=== PATIENT | female | born 1955 | race Caucasian/White ===

== ENCOUNTER → 2023-05-11 10:39 | Outpatient (CLI) | payer MEDICARE, SELFPAY ==
--- NOTE | 2023-05-11 | DI.MRI.S_ITS ---
PROCEDURE: MR LUMBAR SPINE WO CON INDICATIONS: BACK PAIN TECHNIQUE: Noncontrast sagittal T1 spin echo and T2 fast echo, sagittal STIR, and T2 fast spin echo through the lumbar spine. In cases with scoliosis, additional coronal T2 fast spin echo may be performed. COMPARISON: None. FINDINGS: Image quality: Excellent. Alignment and Curvature: There is normal bony alignment. Bone Marrow: Marrow is of normal overall signal. No acute vertebral body compression fractures. Spinal Cord: Conus medullaris terminates at the L1 level. Visualized cord demonstrates normal signal and size. Paraspinous Soft Tissues: No paravertebral masses. T12-L1: Normal appearance. L1-L2: Normal appearance. L2-L3: Mild disc desiccation. Moderate facet ligamentum flavum hypertrophy. Broad-based disc bulge. Mild canal stenosis. No foraminal stenosis. L3-L4: Mild disc desiccation and height loss. Moderate facet and ligamentum flavum hypertrophy. Mild canal stenosis. Mild bilateral foraminal stenosis. L4-L5: Mild disc desiccation and height loss. Broad-based disc bulge. Moderate facet ligamentum flavum hypertrophy. No canal stenosis. Mild right and moderate left neural foraminal stenosis. There is mild flattening of the exiting left nerve root. L5-S1: Moderate disc desiccation and height loss. Vacuum disc phenomenon. No canal stenosis. Mild facet sclerosis. Mild bilateral foraminal stenosis. IMPRESSION: 1. Mild canal stenosis at L2-3 and L3-4. 2. Moderate left foraminal stenosis at L4-5. Dictated by: Dorene Galeano M.D. on 05/11/2023 at 12:47 Approved by: Dorene Galeano M.D. on 05/11/2023 at 12:50
--- NOTE | 2023-05-11 | DI.MRI.S_ITS ---
PROCEDURE: MR HIP RT WO CON INDICATIONS: HIP PAIN TECHNIQUE: Noncontrast coronal T1 spin echo and STIR through the bony pelvis. Coronal and axial T2 fast spin echo with fat saturation, sagittal T1 spin echo, and oblique axial T2 fast spin echo with fat saturation through the hip. COMPARISON: [facility], CR, XR PELVIS WITH LATERAL HIP RIGHT, 03/13/2023, 11:21. FINDINGS: Image quality: Excellent. Bones and joints: There is mild periarticular osteophyte formation at the right hip joint. Subchondral cyst formation and degenerative marrow edema within the right acetabulum. Bone marrow of the pelvic ring and proximal femurs show normal signal throughout. No intraosseous lesions or fractures. No avascular necrosis of the femoral heads. The visualized lower lumbar spine appears normally aligned. Tendons and ligaments: The gluteus medius and minimus tendons appear intact, without associated muscle atrophy. Mild T2 signal elevation at the femoral insertion sites of the right gluteus medius and minimus tendons. The nearby proximal iliotibial band also appears intact. The iliopsoas tendon appears intact, without adjacent bursal fluid collections or evidence for impingement syndrome. The origin of the hamstring tendon is intact at the ischial tuberosity, as well as the associated sacrotuberous ligament. Moderate T2 signal elevation within the proximal hamstring tendon. The straight and reflected heads of the rectus femoris muscle origin appear intact, as well as the conjoint tendon. The ligamentum teres appears intact where visualized. Labrum and cartilage: Moderate right hip joint articular cartilage loss. Diffuse degenerative right hip labral tearing. The alpha angle of the femur is within normal limits at less than 55 degrees. Soft tissues: Visualized muscles demonstrate normal bulk and internal signal. Quadratus femoris muscle demonstrates no internal edema to suggest ischiofemoral impingement. The proximal sciatic neurovascular bundle appears normal adjacent to the hamstring tendons. No free pelvic fluid. Bladder wall thickness is normal. Genitourinary structures and bowel loops appear normal where visualized. IMPRESSION: 1. Right hip osteoarthritis associated with right hip labral tearing. 2. Right hamstring tendinopathy. 3. Insertional tendinitis of the right gluteus medius and minimus tendons. Dictated by: Kevin Burnette M.D. on 05/11/2023 at 12:12 Approved by: Kevin Burnette M.D. on 05/11/2023 at 12:14
== END ==
PROVIDERS: Referring Provider Orthopaedic Surgery; Visit Provider Orthopaedic Surgery
DX: M54.50 Low back pain, unspecified (principal); M76.891 Other specified enthesopathies of right lower limb, excluding foot; M48.061 Spinal stenosis, lumbar region without neurogenic claudication; M16.11 Unilateral primary osteoarthritis, right hip; S73.101A Unspecified sprain of right hip, initial encounter; M76.01 Gluteal tendinitis, right hip
CPT/HCPCS: 72148; 73721

== ENCOUNTER 2023-09-15 11:22 | Day surgery (SDC) | payer MEDICARE, SELFPAY ==
[2023-09-08 09:20] VITALS: BMI 27.7
[2023-09-15] VITALS (10 sets, daily range): BP systolic 132–167; BP diastolic 51–120; PULSE 64–98; RESP 12–18; TEMP 35.7–36.4; O2SAT 94–99; BMI 27.9
--- NOTE | 2023-09-15 06:00 | DI.RAD.S_ITS ---
PROCEDURE: XR HIP W PEL IF DONE RT 2V INDICATIONS: inner op TECHNIQUE: 2 view(s) of the hip acquired. COMPARISON: [facility], CR, XR HIP W PEL IF DONE RT 2V, 09/15/2023, 18:12. Findings and impression: Intraoperative images were obtained for right hip arthroplasty. Please see operative note for full details. Dictated by: Rasheed Villanueva M.D. on 09/16/2023 at 9:15 Approved by: Rasheed Villanueva M.D. on 09/16/2023 at 9:15
[2023-09-15] MEDS: LACTATED RINGERS 1,000 ML 42 ML IV ×2 (11:59→16:05)
[2023-09-15] MEDS: CELECOXIB 200 MG CAPSULE PO (12:00)
[2023-09-15] MEDS: VANCOMYCIN 1,000 MG/200 ML PIGGYBACK 200 MG IV (13:01)
[2023-09-15] MEDS: ALBUTEROL/IPRATROPIUM 3 ML AMPUL INH (13:02)
[2023-09-15] MEDS: diphenhydrAMINE 25 MG TABLET PO (13:57)
--- NOTE | 2023-09-15 14:08 | SUR.PREOP ---
Patient desires not to continue vancomycin infusion due to itching. Notified Surgeon.
--- NOTE | 2023-09-15 14:25 | PM.PREOP ---
Pre-operative Note Interval Note History & Physical reviewed/Exam performed by Physician: Yes Changes to H&P: No
[2023-09-15] MEDS: CLINDAMYCIN 900 MG/50 ML PIGGYBACK 50 MG IV ×2 (14:58→15:03)
[2023-09-15] MEDS: TRANEXAMIC ACID 1,000 MG VIAL 1000 MG INJ (15:15)
--- NOTE | 2023-09-15 15:53 | SUR.OPER ---
Patient supine on padded [place] table, one arm on padded arm board at <90, other arm padded and secured with tape across patient's chest, both legs secured in padded traction boots and positioned per surgeon, padded post at patient's groin, pressure points checked and padded.
[2023-09-15] MEDS: BUPIVACAINE 0.25% (PF) 30 ML, EPINEPHrine 0.15 MG INJ (16:04)
[2023-09-15] MEDS: BUPIVACAINE LIPOSOME 266 MG/20 ML VIAL INJ (16:04)
--- NOTE | 2023-09-15 17:58 | P.OP_ITS ---
Operative Date/Time/Diagnoses Date of procedure: 09/15/23 Time of procedure: 15:00 Pre-op diagnosis: Right hip OA with CDH Post-op diagnosis: same Procedure & Clinicians Procedure: Right total hip arthroplasty anterior approach Same procedure as scheduled: Yes Indications: The patient has had progressively worsening right hip pain with radiographic changes consistent with arthritis. Non-operative management has failed and the patient has requested total hip replacement. The risks, benefits and alternatives to surgery were discussed with the patient prior to proceeding. Risks discussed included, but were not limited to, failure to relieve pain, leg length discrepancy, dislocation, stiffness, infection, nerve damage, deep venous thrombosis, pulmonary embolism, stroke, coma, heart attack, permanent paralysis and , as well as the potential need for eventual revision of the prosthetic. Surgeon: Ashley Rodas Workday Manager: Kyle Peter Anesthesia Type: General and Spinal Operative Notes Findings: Severe right hip OA, adequate stability, adequate bone Closure Type: primary Specimen(s): none sent Prosthetic devices, grafts, tissues, transplants, or devices: Rodas and nephew 48 mm R3 cup, neutral poly liner,one 6.5 mm screw, size 1 standard polar stem with collar, 32 x -3 Oxinium femoral head Estimated Blood Loss (mL): 250 Blood products transfused: none Procedure in detail: The patient was brought to the operating room. Patient was carefully positioned in the supine position. Time-out was performed and antibiotics were given. Anesthesia was induced. She was positioned in the on the table in order to allow hyperextension of the hip. The right lower extremity was prepped and draped in a standard sterile fashion. An anterior right hip incision was made 1 fingerbreadth lateral to the anterior superior iliac spine and extended distally towards the greater trochanter. Dissection was carried out through skin and subcutaneous tissues. Superficial hemostasis was achieved. The fascia over the tensor fascia maria esther was defined and incised with a knife. Two Allis clamps were used to grasp the fascia. Tensor fascia maria esther was retracted laterally. A gelpi retractor was placed. Dissection was carried out down along the neck. The circumflex vessels were carefully identified and cauterized with the Aqua Mantis. A PA was used during the procedure was essential for intraoperative retraction and safe implantation of the components. There was good visualization of the femoral neck. A Cobra was placed superior to the neck and the gluteus fibers were carefully stripped from that superior aspect of the capsule. A 2nd retractor was placed along the inferior aspect of the neck. The rectus insertion along the capsule was partially released. A 3rd retractor that was then gently placed over the rim of the acetabulum under the rectus. Capsule was carefully incised and released from the intertrochanteric line circumferentially superior to the mid sagittal line and inferiorly to the mid sagittal line until the lesser trochanter was palpable. A tag stitch was placed both in the superior and inferior limb of the capsular insertion. Along the acetabulum capsule was also released up to the mid sagittal 12:00 position. A portion of the labrum was resected. A saw was used to perform an osteotomy at the level of the intertrochanteric line and the junction of the superior femoral neck leaving approximately 1 finger breath of residual inferior neck above the lesser trochanter. A 2nd cut was made along the femoral neck at the base of the head and a napkin ring of neck was removed. Corkscrew was placed in the femoral head and the head was removed without difficulty. Retractors were then repositioned around the acetabulum. Residual labrum was resected and additional osteophytes were removed. A reamer that was 4 mm below the templated size was placed by hand in the acetabulum and it was reamed to centralize the acetabulum. It was then reamed up to 2 under the templated size and fluoroscopy was brought in to confirm the position of the reaming and depth of reaming. I reamed 1 under the anticipated size. A trial cup was placed and noted that it was appropriately sized and fluoroscopy confirmed position and depth. The component was open and inserted without difficulty fluoroscopic imaging was used to confirm that the cup had been adequately seated and was well positioned. It was further stabilized with a single screw. Neutral poly liner was placed. The cup was tested and noted to be stable. Attention was then directed to the femur. The femur was gently hyperextended additional capsular release was performed as needed in order to allow adequate visualization of the proximal femur with elevation of the femur. Patient was placed in a hyperextended slightly adducted position with maximum external rotation. Box osteotome was used to check for any residual neck as well as sclerotic bone along the trochanter. [place] pepper was placed in the femur. Additional broaching was performed. Canal finder was used to determine the alignment of the canal and position. Size 0-1 broach was placed. The canal was then appropriately broached up to the templated size as long as there was adequate stability of the broach and serial advancement of the broach without excessive impingement. Specific attention was directed at avoiding varus attempting to direct the distal aspect of the broach more anteriorly and avoiding excessive anteversion. Trial reduction showed acceptable range of motion, good stability, no posterior impingement, rastafarian of leg length and appropriate lateral shuck. I also hyperflexed the hip and checked that there was no impingement anteriorly and there was good stability with flexion, adduction and internal rotation. Marcaine and Exparel were injected. The stem was placed without difficulty. Repeat trial reduction and x-ray showed acceptable overall position, length, and no evidence of the femoral fracture. Final head was placed. Wound was meticulously irrigated with normal saline. The hip was reduced and additional Exparel and Marcaine were injected. The capsule was closed with interrupted nonabsorbable sutures. The fascia of the tensor was closed with interrupted and running Vicryl. No drain was placed. Any tensor fascia maria esther muscle that appeared to be contused or injured which was a minimal amount was carefully resected. Capsule around the tensor was injected with Exparel and Marcaine. The skin was closed with barbed stitches for the subcutaneous tissue and skin. We also used surgical glue. The wound was dressed sterilely. Brief Betadine soak was also used and was meticulously irrigated with normal saline. Patient was transferred to recovery room in satisfactory condition. Complications: none Post-operative Condition: stable Disposition: Acute Care Plan for aftercare: The patient will be maintained on a standard total hip replacement protocol with weight bearing as tolerated and anterior hip precautions. The patient will receive Aspirin and sequential compression devices for DVT prophylaxis. The patient will be discharged home when safe for the home environment.
--- NOTE | 2023-09-15 17:58 | PM.PREOP ---
Pre-operative Note Interval Note History & Physical reviewed/Exam performed by Physician: Yes Changes to H&P: No
--- NOTE | 2023-09-15 18:00 | DI.RAD.S_ITS ---
PROCEDURE: XR HIP W PEL IF DONE RT 2V INDICATIONS: RIGHT ANTERIOR TOTAL HIP TECHNIQUE: AP pelvis and lateral view of the hip acquired. COMPARISON: [facility], ANNEMARIE, XR HIP W PEL IF DONE RT 2V, 09/15/2023, 16:34. FINDINGS: Bones: Patient is status post right hip arthroplasty, with hardware components in expected positions. The hip joint appears congruent. The visualized bony structures appear intact. Soft tissues: Overlying postoperative changes are noted. No suspicious soft tissue densities. IMPRESSION: Expected post-operative appearance of a hip arthroplasty. Approved by: Lucia Bone M.D. on 09/16/2023 at 2:20
[2023-09-15] MEDS: ONDANSETRON 4 MG/2 ML INJ IV (18:11)
[2023-09-15] MEDS: OXYCODONE/ACETAMINOPHEN 5/325 TABLET 1 TAB PO (18:12)
[2023-09-15] MEDS: TRAMADOL 50 MG TABLET PO (18:27)
--- NOTE | 2023-09-15 18:56 | PC.NURSE ---
pt tucked in and resting comfortably. VSS. Call light in reach.
[2023-09-15] MEDS: LACTATED RINGERS 1,000 ML 100 ML IV (19:02)
[2023-09-15] MEDS: ASPIRIN EC 81 MG TABLET PO (22:02)
[2023-09-15] MEDS: IBUPROFEN 400 MG TABLET PO (22:02)
[2023-09-15] MEDS: CEFAZOLIN 2 GM/100 ML PREMIX 100 ML IV (22:05)
[2023-09-16] VITALS: BP 115/46; PULSE 68; RESP 17; TEMP 36.2; O2SAT 96
[2023-09-16] MEDS: ACETAMINOPHEN 325 MG TABLET 650 MG PO ×2 (01:31→06:05)
[2023-09-16] MEDS: METOCLOPRAMIDE 10 MG/2 ML INJ IV (01:31)
[2023-09-16] MEDS: IBUPROFEN 400 MG TABLET PO ×3 (02:43→10:48)
[2023-09-16 04:00] VITALS: BP 118/52; PULSE 72; RESP 16; TEMP 36.3; O2SAT 92
[2023-09-16 04:55] LABS: Hematocrit 31.7 % (36-46); Hemoglobin 10.7 g/dL (12.0-16.0)
[2023-09-16] MEDS: CEFAZOLIN 2 GM/100 ML PREMIX 100 ML IV (06:04)
--- NOTE | 2023-09-16 08:04 | P.DS_ITS ---
History of Present Illness History of Present Illness Date Patient Seen: 09/16/23 Time Patient Seen: 07:30 Chief complaint: Right Total Hip Arthroplasty/Anterior Narrative: Right total hip arthroplasty anterior approach Same procedure as scheduled: Yes Indications: The patient has had progressively worsening right hip pain with radiographic changes consistent with arthritis. Non-operative management has failed and the patient has requested total hip replacement. The risks, benefits and alternatives to surgery were discussed with the patient prior to proceeding. Risks discussed included, but were not limited to, failure to relieve pain, leg length discrepancy, dislocation, stiffness, infection, nerve damage, deep venous thrombosis, pulmonary embolism, stroke, coma, heart attack, permanent paralysis and , as well as the potential need for eventual revision of the prosthetic. Surgeon: Ashley Rodas Filtration Plant Operator: Kyle Peter Anesthesia Type: General and Spinal Patient is found lying comfortably in bed. Pain is controlled with oral medication. Patient had mild bit nausea last night but was controlled with medication. No fever chills or vomiting. Denies any numbness down the right leg. She was able to ambulate and use the toilet last night. Discharge Providers Provider Date of admission: 09/15/2023 Discharge Date: 09/16/23 Primary care physician: Gita Hernandez MD Consults: 09/15/23 06:00 Consult to Anesthesiology Routine Comment: Consulting Provider: Anesthesiologist Reason for consultation: Regional block for post operative pain control 09/15/23 18:55 Consult to Discharge Planning Routine Comment: Consult to Occupational Therapy Evaluate & Treat Comment: Physician Instructions: Evaluate and treat Consult to Physical Therapy Evaluate & Treat Comment: Physician Instructions: post op JEFFERY protocol Discharge provider: Kyle Peter PA-C Summary Hospital Course Discharge Diagnosis: Status right hip total arthroplasty. Hospital Course: Multimodal pain control. Physical therapy. Status at Discharge Cognitive/behavioral status at discharge: oriented Functional status at discharge: uses cane/walker Overall status at discharge: patient is back to baseline Time Spent with Patient Time spent: Less than 30 minutes Exam Vital Signs (past 8 hours): - 09/16/23 04:00 Temperature 97.4 F L Pulse Rate 72 Respiratory Rate 16 Blood Pressure 118/52 L Pulse Oximetry 92 Oxygen Flow Rate 0 Oxygen Delivery Method Room Air Oxygen Flow Rate 0 Narrative Exam Narrative: Patient is found lying comfortably in bed. Dressing appears to be well- maintained with no signs of drainage. No pain to compression of the posterior thigh or calf. It is cool to touch. Sensation is grossly intact to the right lower extremity. Able to actively dorsiflex and plantar flex against resistance of the right ankle. Const General: cooperative and comfortable Resp Effort & Inspection: normal respiratory effort and able to speak in complete sentences Objective Labs 09/16/23 04:11 Labs: Laboratory Results - last 24 hr 09/16/23 04:11 Hgb 10.7 L Hct 31.7 L PFSH Medical History (Updated 09/08/23 @ 15:06 by Brianna Mclaughlin RN) Melanoma (1979) History of COVID-19 (~06/2023) Depression Easy bruisability Osteoarthritis Myranda's disease Hypothyroidism Ovarian cancer (2015) LBBB (left bundle branch block) Asthma Surgical History (Updated 09/08/23 @ 15:06 by Brianna Mclaughlin RN) History of augmentation of both breasts (2003) History of knee surgery Hx of eye surgery (2004) History of colon surgery Hx of appendectomy (2015) Hx of cholecystectomy (2015) Hx of total hysterectomy (2015) Social History household members: spouse Smoking Status: Never smoker alcohol intake: current Discharge Assessment & Plan Assessment and Plan Assessment: Status post right hip arthroplasty Plan of Treatment: Discharge home Standard total hip replacement protocol with weight bearing as tolerated and anterior hip precautions. Aspirin 81 mg twice a day for DVT prophylaxis. Patient has acquired postoperative prescriptions already. Use as prescribed. Start physical therapy in 3-7 days. Follow up with [facility] in 2 weeks for wound check. Discharge Plan Discharge Plan Patient Disposition: Home Provider Discharge Comment: Pending PT approval Discharge orders & Medications Discharge Orders: Discharge (Order); Ordered 09/16/23 Ordered By: Kyle Peter Prescriptions: Continued levothyroxine [Synthroid] 88 mcg Tablet 88 mcg PO DAILY zolpidem [Ambien] 10 mg Tablet 5 - 7 mg PO BEDTIME PRN (Reason: Sleep) albuterol sulfate 90 mcg/actuation Hfa Aerosol Inhaler 2 puff INHALATION Q4-6H PRN (Reason: Shortness Of Breath) escitalopram oxalate [Lexapro] 20 mg Tablet 20 mg PO DAILY Follow up/Referrals: Annita Calvillo PA-C [[employer]] - 09/29/23 11:30 am (appt:09/29 @ 11:30 jeff hummel pac @ [facility] Gita Hernandez MD [Primary Care Provider] - Diet/Activity/Treatments Diet: Diet as Tolerated Activity: Weightbearing as tolerated with anterior hip precautions. Cold/Heat Therapy: Ice over surgical site as needed Skin/Wound/Dressing Care Report to your healthcare provider any signs of infection, such as:: chills, fever, night sweats, unusual drainage and unusual redness Dressing: Keep dressing clean and dry. If dressing becomes dirty change Visit Report/Discharge Packet Instructions: DI for Hip Replacement, DI for Prescription Opioid Use Stand Alone Forms: Patient Portal/API, Surgery Discharge Discharge Data Primary Care Provider: Gita Hernandez Attending Provider: Ashley Rodas VTE Deep Vein Thrombosis/Pulmonary Embolism Present on Admission: No
[2023-09-16 09:21] VITALS: BP 115/56; PULSE 67; RESP 18; TEMP 36.6; O2SAT 96
[2023-09-16] MEDS: ASPIRIN EC 81 MG TABLET PO (09:33)
[2023-09-16] MEDS: ESCITALOPRAM 10 MG TABLET 20 MG PO (09:33)
[2023-09-16] MEDS: LEVOTHYROXINE 88 MCG TABLET PO (09:33)
--- NOTE | 2023-09-16 09:45 | PT.IIE ---
Current Diagnoses Unilateral osteoarthritis resulting from hip dysplasia, right hip (09/15/23) Surgery Performed Operation Date: 09/15/23 13:45 Actual Procedures p Total Hip Arthroplasty/Anterior Approach(Right) - Ashley Rodas MD Surgical History (Last Updated 09/08/23 @ 15:06 by Brianna Mclaughlin, RN) History of augmentation of both breasts (2003) History of colon surgery History of knee surgery Hx of appendectomy (2015) Hx of cholecystectomy (2015) Hx of eye surgery (2004) Hx of total hysterectomy (2015) Medical History (Last Updated 09/08/23 @ 15:06 by Brianna Mclaughlin, ROBERTO) Asthma Depression Easy bruisability Myranda's disease History of COVID-19 (~06/2023) Hypothyroidism LBBB (left bundle branch block) Melanoma (1979) Osteoarthritis Ovarian cancer (2015) Physical Therapy Inpatient Evaluation/Re-Eval M1 PT/OT-IP Prior Functional Status Start: 09/16/23 10:08 Freq: NEEDED Status: Discharge Protocol: Document 09/16/23 10:08 [facility] (Rec: 09/16/23 10:22 [facility] [id number]) Medical Review Prior Functional Status Communication Independent Mobility and Gait Pt states used the 4WW in the house. Activities of Daily Living and IADL's Pt had pain during all ADL and IADL needs. Prior Functional Level (Other details) Pt's to be home to assist pt. Social History Household Members spouse Living Arrangements House Number of Floors (Floors) One Floor Number of Stairs To Enter/Railing? Pt has one step from the front door. Home Equipment Four Wheel Walker,Hand Held Shower,Brush Material Preparer,Grab Bars Near Toilet M1 PT/OT-IP Prior Functional Status Start: 09/16/23 15:22 Freq: NEEDED Status: Active Protocol: Document 09/16/23 09:45 AB (Rec: 09/16/23 15:39 AB [id number]) Medical Review Prior Functional Status Medical History Reviewed Yes Communication able to make needs known Mobility and Gait pt stated that she was independent with all mobilities and ambulation without AD but occasionally uses a 4WW depending on her hip pain Activities of Daily Living and IADL's per OT note: Pt had pain during all ADL and IADL needs. Social History Household Members spouse Living Arrangements House Number of Floors (Floors) One Floor Number of Stairs To Enter/Railing? Pt has one step from the front door. Home Environment Standard Height Toilet,Walk in Shower Home Equipment Four Wheel Walker,Hand Held Shower,Brush Material Preparer,Grab Bars Near Toilet Additional Social History Comment pt spouse will be able to assist pt at home M2 PT-IP Current Condition Start: 09/16/23 15:22 Freq: NEEDED Status: Active Protocol: Document 09/16/23 09:45 AB (Rec: 09/16/23 15:39 AB [id number]) Physical Therapy Current Condition Current Condition Evaluation Date 09/16/23 Treatment Diagnosis s/p R JEFFERY anterior approach; difficulty in walking Onset Date 09/15/23 M3 PT-IP Subjective Start: 09/16/23 15:22 Freq: NEEDED Status: Active Protocol: Document 09/16/23 09:45 AB (Rec: 09/16/23 15:39 AB [id number]) Subjective Physical Therapy Visit Type Type Initial Evaluation Visit Start Time 09:45 Visit Stop Time 10:45 Number of AREA COORDINATOR Visits 0 Physical Therapy Visit Comments Patient Comments agreeable to do PT Therapy Pain Assessment Pain When Pain Assessed At Rest Pain Present Pain Present Pain Reported Location Right Hip Intensity 3 Scale Used Numeric (0 - 10) Pain Management Techniques Apply Cold,Distraction, Modification of Treatment,Re- positioning,Timing of Activity with Medications M4 PT-IP Mobility and Gait Start: 09/16/23 15:22 Freq: NEEDED Status: Active Protocol: Document 09/16/23 09:45 AB (Rec: 09/16/23 15:39 AB [id number]) PT-Bed Mobility Assessment Supine to Sit Supine to Sit Standby Assistance Sit to Supine Sit to Supine Standby Assistance,Contact Guard Assistance,1 Person Assistance PT-Transfer Assessment Sit to and From Stand Sit to and from Stand Standby Assistance,Contact Guard Assistance,1 Person Assistance Equipment Transfer Assistive Device Gait Belt,Front Wheeled Walker ,4 Wheeled Walker Orthotic/Prosthetic Devices or Brace: No Transfers Transfer Destination Bed,Chair Transfer Technique ambulated Transfer Ability Level of Assist Standby Assistance,Contact Guard Assistance,Use of Upper Extremities Comments Mobility Comments pt is sitting up on the chair. spouse in room. obtained PLOF and home set up from pt. reviewed hip precautions with pt and pt recalled 1/2. educated pt and spouse regarding anterior hip precautions RLE. pt able to recall afterwards. pt completed sit to stand CGA and ambulated in room using fWW ~ 20 ft and sat on EOB. needs occasional cues for hip precautions. pt completed sit <>supine SBA and cues for techniques. pt completed step transfer bed to chair using FWW SBA. caregiver training conducted. educated spouse on how to use safety belt and how to assist pt. adjusted 4WW and reviewed on use of 4WW/brakes. spouse was able to put safety belt on pt and assisted pt with sit to stand. assessed pt's ambulation using 4WW CGA and pt completed ~ 30 ft. stair climbing training. educated pt and spouse on stair techniques. pt completed up/down step using 4WW min A and max cues. pt stated that she is going to get a FWW. switched pt to a FWW and ambulated in the hallway ~ 40 ft with spouse assisting SBA to CGA. pt completed up/down platform step again using FWW CGA. pt ambulated back to her room and sat on the chair. positioned pt on the chair. pt and spouse without further concerns. call light and table placed within reach. Gait Assessment Gait Gait Assistance Required: Standby Assistance,Contact Guard Assist Distance (Feet) 40 Able to Maintain Weight Bearing Status Yes During Gait Assistive Devices Assistive Device Gait Belt,Front Wheeled Walker ,4 Wheeled Walker Orthotic/Prosthetic Devices or Brace: No Gait Deviations General Gait Pattern Decreased Feet Clearance,Step- to Gait Factors Limiting Gait Function Factors Limiting Gait Function Decreased Activity Tolerance, Decreased Strength,Limited Range of Motion,Pain,Poor Balance,Poor Safety Awareness Stair Climbing Assessment Evaluation Level of Assist On Stairs Contact Guard Assistance, Minimal Assistance Devices Stair Climbing Assistive Devices Front Wheel Walker,Four Wheel Walker Technique/Endurance Stair Climbing Direction Ascend and Descend Stair Climbing Technique Step to Step Number of Steps Climbed 1 Query Text: Stair Climbing Set # Repetitions (reps) 2 PT-Balance Assessment Sitting Balance and Reactions Static Sitting Balance Ability Normal Dynamic Sitting Balance Ability Good Standing Balance and Reactions Static Standing Balance Ability Fair Dynamic Standing Balance Ability Fair Device Used FWW M5 PT-IP Objective Assessments Start: 09/16/23 15:22 Freq: NEEDED Status: Active Protocol: Document 09/16/23 09:45 AB (Rec: 09/16/23 15:39 AB [id number]) Orientation Orientation/Cognition Level of Alertness Alert Orientation Name,Place,Situation Language Function Ability No Deficits Noted Safety Awareness Decreased Safety Awareness Memory Description No Deficits Noted Gross Range of Motion Lower Extremity ROM Assessment Within Functional Limits Strength Lower Extremity Strength Assessment Right Impaired Hip 3-/5 Knee 4-/5 Sensation Assessment Sensation Gross Sensation WNL Muscle Tone Muscle Tone WNL Yes M6 PT-IP Treatment Start: 09/16/23 15:22 Freq: NEEDED Status: Active Protocol: Document 09/16/23 09:45 AB (Rec: 09/16/23 15:39 [id number]) Physical Therapy Treatment Education Education Provided Precautions,Weight Bearing Status,Post-Op Packet,Safety M7 PT-IP Assessment and Plan Start: 09/16/23 15:22 Freq: NEEDED Status: Active Protocol: Document 09/16/23 09:45 AB (Rec: 09/16/23 15:39 AB [id number]) PT Summary Assessment and Plan Potential Rehabilitation Potential Good Status of Condition at Evaluation Stable Summary Impairments Pain,ROM,Strength,Balance, Coordination,Sensation,Tone, Cognition,Bed Mobility, Transfers,Gait,Activity Tolerance Assessment Summary pt is a 68 y/o F s/p R JEFFERY anterior POD 1. pt has R anterior hip precautions and is WBAT. pt requiring SBA to CGA with mobility and plans to go home and spouse to assist her. caregiver training conducted and spouse was able to assist pt safely. pt may go home when stable. Goals Bed Mobility Goal Independent Transfer Goal Independent,Front Wheeled Walker,Four Wheeled Walker Gait Goal Independent,Front Wheel Walker ,Four Wheel Walker Gait Distance 300 Other Goals up/down 1 step using FWW/4WW SBA Days to Meet Goals 5 Frequency of Treatment Frequency Of Treatment Twice a Day Treatment Plan Physical Therapy Treatment Plan Bed Mobility Training,Transfer Training,Gait Training, Therapeutic Exercise,Balance Retraining,Post Op Education, Discharge Planning,Hot or Cold Pack,Neuromuscular Re-ed, Coordination Retraining,Manual Therapy Precautions Anterior Hip Precautions No Hip Extension,No Hip External Rotation Weight Bearing Status Weight Bearing Status Weight Bear as Tolerated Allowed Weight Bearing Amount (enter % RLE WBAT or #) (%) Recommendations To Nursing Amount of Assist Needed 1 Person Assist Discharge Recommendations PT Discharge Recommendations Home with Assistance, Outpatient PT Equipment Needed for Home Before FWW Discharge Transportation Needs at Discharge Private Vehicle
--- NOTE | 2023-09-16 10:22 | OT.IP.EVAL ---
Current Diagnoses Unilateral osteoarthritis resulting from hip dysplasia, right hip (09/15/23) Surgery Performed Operation Date: 09/15/23 13:45 Actual Procedures p Total Hip Arthroplasty/Anterior Approach(Right) - Ashley Rodas MD Past Medical History (Last Updated 09/08/23 @ 15:06 by Brianna Mclaughlin, RN) Asthma Depression Easy bruisability Myranda's disease History of COVID-19 (~06/2023) Hypothyroidism LBBB (left bundle branch block) Melanoma (1979) Osteoarthritis Ovarian cancer (2015) Surgical History (Last Updated 09/08/23 @ 15:06 by Brianna Mclaughlin, RN) History of augmentation of both breasts (2003) History of colon surgery History of knee surgery Hx of appendectomy (2015) Hx of cholecystectomy (2015) Hx of eye surgery (2004) Hx of total hysterectomy (2015) Occupational Therapy Inpatient Evaluation/Re-Eval M1 PT/OT-IP Prior Functional Status Start: 09/16/23 10:08 Freq: NEEDED Status: Active Protocol: Document 09/16/23 10:08 [facility] (Rec: 09/16/23 10:22 [facility] [id number]) Medical Review Prior Functional Status Communication Independent Mobility and Gait Pt states used the 4WW in the house. Activities of Daily Living and IADL's Pt had pain during all ADL and IADL needs. Prior Functional Level (Other details) Pt's to be home to assist pt. Social History Household Members spouse Living Arrangements House Number of Floors (Floors) One Floor Number of Stairs To Enter/Railing? Pt has one step from the front door. Home Equipment Four Wheel Walker,Hand Held Shower,Incident Response Lead,Grab Bars Near Toilet, leg rn cardiovascular icu M2 OT-IP Current Condition Start: 09/16/23 10:08 Freq: Status: Active Protocol: Document 09/16/23 10:08 [facility] (Rec: 09/16/23 10:22 [facility] [id number]) Occupational Therapy Current Condition Current Condition Evaluation Date 09/16/23 Treatment Diagnosis S/P R JEFFERY anterior approach Diagnosis Onset Date 09/15/23 Post Operative Precautions Anterior Hip Precautions No Hip Extension,No Hip External Rotation M3 OT- IP Subjective and Pain Start: 09/16/23 10:08 Freq: Status: Active Protocol: Document 09/16/23 10:08 [facility] (Rec: 09/16/23 10:22 [facility] [id number]) OT- Subjective Occupational Therapy Visit Type Type Initial Evaluation Visit Start Time 09:15 Visit Stop Time 09:48 Occupational Therapy Visit Comments Patient Comments Pt agreed to get up. Pt's present at the end of the session. Patient/Caregiver Goals TO go home. OT Pain Assessment Pain When Pain Assessed At Rest Pain Present Pain Present Pain Reported Location Right Hip Intensity 2 Scale Used Numeric (0 - 10) M4 OT- IP ADL's Start: 09/16/23 10:08 Freq: Status: Active Protocol: Document 09/16/23 10:08 [facility] (Rec: 09/16/23 10:22 [facility] [id number]) OT ALW-Ealw-Xumnxlp General Evaluation Self-Feeding Ability Independent OT ADL-Grooming General Evaluation Grooming Ability Independent Comments OT Grooming Comments Able to do while standing at the sink with 4ww. OT ADL-Oral Care General Eval Oral Care Ability Independent OT ADL-Dressing Comments OT Dressing Comments Pt not wanting to dress at this time. Able to go over use of supervisor pumping and sock aid for LB dressing needs. OT ADL-Toileting Comments OT Toileting Comments Pt not having to go. Educated pt to be mindful of RLE positioning during ADL needs. Also may be easier to stand to wipe. Also if needed use of pads at night and to assist. OT ADL-Bathing Comments OT Bathing Comments Pt would benefit from a shower chair at home to use. M5 OT- IP IADL's Start: 09/16/23 10:08 Freq: Status: Active Protocol: Document 09/16/23 10:08 [facility] (Rec: 09/16/23 10:22 [facility] [id number]) OT-Instrumental Activities of Daily Living Deficits IADL Deficits Identified Deficits Home Safety Awareness Awareness of Need for Assistance at Home Good Awareness Ability to Problem Solve Emergency Able to Problem Solve Situations Medication Management Medication Management Comments Pt's will be able to assist as needed. Money Management Money Management Comments Pt's to be able to assist as needed. Meal Preparation Meal Preparation Caregiver Provides Assist Title One Reading Teacher Title One Reading Teacher Caregiver Provides Assist M6 OT- IP Functional Cognition Start: 09/16/23 10:08 Freq: Status: Active Protocol: Document 09/16/23 10:08 [facility] (Rec: 09/16/23 10:22 [facility] [id number]) Cognitive Factors Limiting Selfcare Function Cognitive Ability Level of Alertness Alert Patient Orientation Name,Place,Situation Attention Span Ability Capable of Focused Attention, Capable of Sustained Attention Ability to Follow Commands Able to Follow One Step Commands Safety Awareness Decreased Recall of Precautions,Decreased Ability to Apply Precautions Cognitive Comments Cognitive Assessment Comments Pt needing cues to be able to follow her hip precautions for ADL and mobility needs. OT- Vision and Hearing OT- Hearing Assessment OT- Hearing Assessment WFL OT- Vision Assessment Visual Acuity Glasses All The Time M7 OT- IP Mobility and Balance Start: 09/16/23 10:08 Freq: Status: Active Protocol: Document 09/16/23 10:08 [facility] (Rec: 09/16/23 10:22 [facility] [id number]) OT- Bed Mobility Assessment Supine to Sit Supine to Sit Assist Standby Assistance OT-Transfer Assessment Sit to and From Stand Sit to and from Stand Contact Guard Assistance Transfers Transfer Ability Standby Assistance Technique Transfer Destination Bed,Chair Transfer Technique Stand Step Pivot Devices Transfer Assistive Devices Gait Belt,Front Wheeled Walker Comments Mobility Comments BP stable in supine and sitting. Pt able to get out of the left side and follow her precautions. CGA to stand to the 4ww and SBA/CGA to walk to the sink and to the recliner. VC to push up form the surfaces when coming to stand. Able to initate education how to elvira/doff the gait belt with pt and her . OT- Balance Assessment Sitting Balance and Reactions Static Sitting Balance Ability Normal Dynamic Sitting Balance Ability Good Standing Balance and Reactions Static Standing Balance Ability Good Dynamic Standing Balance Ability Good M8 OT- IP Objective Assessments Start: 09/16/23 10:08 Freq: Status: Active Protocol: Document 09/16/23 10:08 [facility] (Rec: 09/16/23 10:22 [facility] [id number]) OT Gross Range of Motion Upper Extremity Range of Motion Assessment Within Functional Limits OT Strength Upper Extremity Strength Assessment Within Functional Limits M9 OT- IP Assessment and Plan Start: 09/16/23 10:08 Freq: Status: Active Protocol: Document 09/16/23 10:08 [facility] (Rec: 09/16/23 10:22 [facility] [id number]) OT Summary Assessment and Plan Potential Rehabilitation Potential Excellent Analytic Complexity at Evaluation Low Summary OT Impairments Pain,Balance,Functional Mobility,Dressing,Toileting, Bathing,Toilet Transfers, Shower Transfers Progress Towards Goals Progressing Toward Goals Assessment Summary Pt low complexity and main barriers are step, pain, needing repetition cues to be be able to incorporate her hip precautions especially during mobility with 4ww. Suggested 4ww to be lowered, but pt states not needed. Pt to go home with her when medically stable and attend outpt PT. Goals Dressing Goal Independent,Incident Response Lead,Sock Aid Toileting Goal Independent Bathing Goal Standby Assistance Toilet Transfer Goal Independent Shower Transfer Goal Standby Assistance Days to Meet Goals 5 Frequency of Treatment Frequency Of Treatment Once a Day Treatment Plan OT Treatment Plan ADL Training,Functional Mobility,Patient/Family Education,Discharge Planning Discharge Recommendations OT Discharge Recommendations Home with Assistance, Outpatient PT Home Equipment Needs shower chair, socks aid Transportation Needs at Discharge Private Vehicle
--- NOTE | 2023-09-16 15:50 | CM.DANOTE ---
DCP Assessment Note Pt is a 68yo F here following right total hip surg with Dr Rodas on 09.15.23 PCP Gita Hernandez [facility] and JAYLEN WATERMAN reviewed EMR. Per PT/OT rec home with assistance. Per chart review, pt has spouse to help at home. [place] No obvious CM needs identified. Pt left prior to meeting with this author. Per PT note, pt has necessary equip for home use. Plan: home with spouse today. No CM needs. CM team will follow as needed GUEVARA Angel Discharge Planning/Care Management CM Discharge Assessment Start: 09/16/23 15:48 Freq: Status: Active Protocol: Document 09/16/23 15:48 SL (Rec: 09/16/23 15:50 SL [id number]) Discharge Planning Assessment Assigned Wellness Coach GUEVARA Angel DPOA/Assigned Designee Name bea Zurita Contact Information [phone] Advance Directives? Yes Advance Directives on File No History Provided By Patient Prior Living Arrangements House Household Members spouse DME Already Rented / Owned FWW / Walker Barriers to Discharge No Discharge Plan Home Referrals Initiated None needed Whiteboard Updated in Patient Room with No name and ext. # of Wellness Coach Review Status In Process Next Review Type Continued Stay Review Pre-Anesthesia Assessment Start: 09/08/23 09:20 Freq: Status: Discharge Protocol: Document 09/08/23 09:20 [facility] (Rec: 09/08/23 10:19 CAB [id number]) Pre-Anesthesia Assessment Patient Information Reviewed Via Phone Assessment Assessment Completed With Patient Comment Labs/EKG done w/PCP per pt, surgeon has not here Primary Care Provider Gita Hernandez Seen Specialist in Last 12 Months Yes Specialist Seen Oncologist,Orthopedist Comment Oncology visit 08/04/23 scanned Primary Language Danish Pole Peeler Required No Height 167.64 cm Weight 78.018 kg Body Mass Index (BMI) 27.7 Hearing Ability Normal Visual Assist Glasses Dentition Type Teeth, Natural Present Barriers to Learning None Hx Anesthesia Reactions No Hx Family Anesthesia Reaction No Hx Malignant Hyperthermia No Hx Blood Transfusions No Anesthesia Review Requested No Shutdown Planner No alcohol intake current alcohol intake frequency holidays/special occasions only Smoking Status Never smoker Substance Use Type does not use Pain Present Pain Reported Musculoskeletal Symptoms Abnormal Gait,Difficulty Walking,Joint Pain History of Falling (Recent or History of No ) Patient is completely paralyzed or No completely immobile Prosthesis or Orthotic Device Front Wheel Walker Mental Status Oriented to own ability Is patient on oxygen? No Does patient have PATE/SOB Yes: r/t asthma Hx Sleep Apnea No Currently Taking a Beta Bety No Can You Climb a Flight of Stairs Without Yes SOB Hx Chest Pain No Hx SOB Yes: r/t asthma Hx Syncope or Dizziness No Anti-Coagulant Therapy No Has a Director Talent No Cardiac Testing No Hx Pacemaker/ICD No Pacemaker Rep Required? No Cardiac Clearance Received Not Applicable Diet Type At Home Vegetarian Dysphagia No Gastrointestinal Symptoms None Urinary Catheter Present No Hx Urinary Self Catheterization No Diabetes No Patient No Lactating No Hx Drug Resistant Organism No Presence of External or Internal Medical No Devices Received a COVID vaccine? Yes Received all doses? No Marital Status Lives With spouse Current Living Arrangements House Number of Floors (Floors) One Floor Support System Spouse Does the Patient Have Assistance After Yes Surgery Patient Discharge Plan Description Return Home Comment Pt advised possible same day surgery per surg, pt wants to stay overnight Additional comment Lives on [facility] Feels Safe in Current Environment Yes Been Physically Hurt or Threatened By a No Person in Current Environment Do you have thoughts of harming yourself None or others? Are you currently considering suicide? No Do you have a plan to hurt yourself or No Plan others? Do You Have Any Spiritual Beliefs That No May Affect Your HC Choices? Do You Have Any Cultural Practices That No May Affect Your HC Choices? Who Can We Speak to About Patient's Care Family, friends Identifying Code for Release of Patient Declines to issue Information Health Care Proxy/Next of Kin Parminder () Health Care Proxy Emergency Contact Name Parminder () Emergency Contact Advance Directives? Yes Advance Directives on File No Requested Patient Bring Advanced Yes Directives DOS Power of Heavy Equipment Sales Associate Yes Power of Heavy Equipment Sales Associate Name Parminder () Power of Heavy Equipment Sales Associate PAC Instructions Do not shave/clip surgical site,Durable medical equipment ,Medications to take/avoid, Nasal antibiotic,No ETOH/ petroleum product on skin DOS, Pre-surgical wash,Sensory aids ,Sturdy shoes/comfortable clothes,Do not bring valuables and remove jewelry
== END 2023-09-16 11:08 | disposition home or self-care (01) ==
LOC: OR 11:23 → AC 11:23
PROVIDERS: PCP Specialist; Referring Provider Orthopaedic Surgery; Visit Provider Orthopaedic Surgery
PROC: (CPT 27130; principal; 2023-09-15 13:45)
DX: M16.31 Unilateral osteoarthritis resulting from hip dysplasia, right hip (principal); M25.751 Osteophyte, right hip
CPT/HCPCS: 27130; 36415; 73502; 76000; 85014; 85018; 97116; 97161; 97165; 97530; 97535; C1776; C9290; J0171; J0690; J2250; J2405; J2704; J2765; J3010

== ENCOUNTER 2025-03-02 09:57 | Outpatient (CLI) | payer MEDICARE, SELFPAY ==
[2023-09-15 20:31] VITALS: BMI 27.9
[2025-03-02] VITALS (9 sets, daily range): BP systolic 138–175; BP diastolic 59–79; PULSE 54–65; RESP 15–17; TEMP 36.3; O2SAT 98–100
[2025-03-02] MEDS: MIDAZOLAM 2 MG/2 ML VIAL IV (11:13)
[2025-03-02] MEDS: DEXAMETHASONE 10 MG/ML VIAL 20 MG INJ (11:17)
[2025-03-02] MEDS: BETAMETHASONE 30 MG/5 ML MDV 12 MG INJ (11:17)
[2025-03-02] MEDS: BUPIVACAINE 0.25% (PF) VIAL 2 ML INJ (11:18)
[2025-03-02] MEDS: BETAMETHASONE 30 MG/5 ML MDV 6 MG INJ (11:19)
[2025-03-02] MEDS: LIDOCAINE 1% 20 ML INJ (11:20)
--- NOTE | 2025-03-02 11:35 | PM.PROC.IR.1 ---
Date/Time/Diagnoses Date of procedure: 03/02/25 Time of procedure: 11:36 Pre-procedure diagnosis: 1. FORAMINAL STENOSIS WITH LE SYMPTOMS Procedure Notes Procedure: 1. FLUOROSCOPICALLY GUIDED CONTRAST CONTROLLED TRANSFORAMINAL EPIDURAL STEROID INJECTION - BILATERAL L4/5 TFESI Indications: Chelsey is referred by Dr. Hernandez for treatment of Foraminal Stenosis with bilateral LE Symptoms Physician: Binu Olguin Total Fluoroscopy time (seconds): 22 Total sedation minutes: 19 Complications: none Procedure in detail & Post-procedure care: FINDINGS Foraminal Nerve Root Compression secondary to disc disease and facet hypertrophy DESCRIPTION OF PROCEDURE Following review of allergy and review of potential side effects and complications, including, but not necessarily limited to, infection, allergic reaction, local tissue breakdown, stroke, temporary or permanent nerve injury, paralysis, and possible , the patient indicated that the patient understood and agreed to proceed. An informed consent document was signed by the patient, witnessed by a nurse, and placed in the patient's chart. Additionally, other treatment options including medications, modalities, and physical therapy were reviewed with the patient. After review of previous anaesthesic history and IV conscious sedation the patient was deemed safe to proceed with today?s procedure with IV conscious sedation as ASA class II designation. Safety time-out was performed to confirm patient ID, procedure to be performed and site of procedure. IV sedation was accomplished with a combination of 2mg of Versed was administered by the RN after DO order, titrated to patient comfort during the course of the procedure while the patient remained responsive to all verbal commands In the prone position following sterile prep and drape of the lumbar region, the right L4/5 posterior neuroforamen was identified fluoroscopically. The skin was anesthetized via a 25-gauge 1.5-inch needle with 1% lidocaine solution. At this point, a 25-gauge 3.5-inch spinal needle was atraumatically introduced and advanced under fluoroscopic guidance through the posterior right L4/5 neuroforamen to approximately the anterior aspect of the canal. Depth was confirmed on lateral view. Following negative aspiration, injection of approximately 1.5cc of Isovue 200 under live fluoroscopy in the AP view confirmed excellent flow along the nerve root, into the epidural space without vascular or intrathecal uptake observed Radiological data, including multiple fluoroscopic views of the lumbosacral spine, reveal a spinal needle at the right L4/5 posterior neuroforamen. Subsequent views show flow of contrast material flowing superiorly and inferiorly along the nerve root confirming epidural flow. Subsequently, a test dose of 1.5cc of 1% lidocaine solution was administered and patient was observed for two minutes for signs or symptoms of complications, including abdominal pain, shortness of breath, bilateral upper or lower extremity weakness, nausea and vomiting, prior to steroid injection. At this point, a total of 2cc or 10mg of dexamethasone and 6mg betamethasone was injected without incident. Attention was then refocused to the left L4/5 level where the identical procedure was replicated. The procedure tolerated the procedure well without signs or symptoms of complications prior to transfer to the recovery area continued monitoring without incident. The patient was then transferred to the recovery area where they were observed for an appropriate time after the injection. The patient reported a VAS score of 7 prior to the procedure and a post-procedure VAS of 0. POST OP INSTRUCTIONS The patient was provided a Pain Log to continue to record their response to the target-specific procedure prior to follow-up visit with their referring physician. Additionally, specific post-injection care instructions and a contact number to our office were provided if concerns arise regarding possible complications associated with the procedure are suspected.
== END 2025-03-02 12:07 | disposition home or self-care (01) ==
PROVIDERS: PCP Specialist; Referring Provider Specialist; Visit Provider Physical Medicine & Rehabilitation
DX: M48.061 Spinal stenosis, lumbar region without neurogenic claudication (principal); M51.16 Intervertebral disc disorders with radiculopathy, lumbar region; M47.26 Other spondylosis with radiculopathy, lumbar region
CPT/HCPCS: 64483; 99152; J0702; J1100; J2250